=== PATIENT | male | born 1975 | race Caucasian/White ===

== ENCOUNTER 2024-01-15 17:40 | Emergency (ER) | payer SELFPAY ==
[2024-01-15 17:43] VITALS: BP 123/91
--- NOTE | 2024-01-15 18:32 | ED.GENMED ---
History of Present Illness
General
Chief Complaint: Musculo-Skeletal Complaint
Time Seen by Provider: 01/15/24 18:05
Travel History
Have you had any contact with someone who has COVID-19?: No
Do you have any symptoms of coronavirus? Fever > 100 degrees, chills, cough, shortness of breath, sore throat, loss of taste or smell, muscle aches, or headache?: No
History of Present Illness
History of Present Illness:
88-year-old presents to the emergency department for evaluation of left ankle and foot pain after inverting it when stepping in a pothole accidentally. He is able to bear weight on his toes only
Review of Systems
Review of Systems
Allergies reviewed?: Yes
All Other Systems: ROS reviewed and negative except as documented in HPI and ROS
Phy Exam
Physical Exam
Physical Exam:
GEN: Well appearing, NAD, WDWN
HEENT: Oral mucosa moist, no scleral icterus
Cardiac: Regular rate
Lung: No respiratory distress, no tachypnea
MSK: Ecchymosis and swelling to the left lateral foot, left ankle range of motion is normal
Skin: Good color, no pallor or jaundice, no rashes
Neuro: AO x3, moves all extremities freely
Psych: Calm, cooperative
Course
Orders/Labs/Results
Orders:
Orders
01/15/24 17:45
Ankle, left 3 view CR [CR Ankle - Left Min 3 Views ] Urgent
Comment:
Reason For Exam: fell ankle and foot
CR Foot - Left Min 3 Views Urgent
Comment:
Reason For Exam: left foot and ankle pain fell today
01/15/24 18:32
Ortho Boot Left- Treatment ONCE
Short or tall?: Short
Vital Signs
Initial and Last Documented VS:
Initial Vital Signs
Temp Pulse Resp BP Pulse Ox
97.8 F 87 16 123/91 98
01/15/24 17:43 01/15/24 17:43 01/15/24 17:43 01/15/24 17:43 01/15/24 17:43
Last Documented Vital Signs
Temp Pulse Resp BP Pulse Ox
97.8 F 87 16 123/91 98
01/15/24 17:43 01/15/24 17:43 01/15/24 17:43 01/15/24 17:43 01/15/24 17:43
MDM/Problems Addressed
MDM/Problems Addressed:
X-rays of the left foot and ankle are unremarkable. Patient is provided with an orthopedic boot due to the likelihood of significant ankle sprain/tendon rupture, discussed supportive care and return parameters
*Critical Care Note
Total Time (30-74mins, 75-104mins- exclusive of procedures): Not Applicable
ED Attending Note
-
Portions of this chart may have been created with voice recognition software.� Occasional wrong word or��sound alike� substitutions may have occurred due to the inherent limitations of voice recognition software.
Discharge Plan
Departure
Patient Disposition: Home (Routine Discharge)
Date of Disposition: 01/15/24
Time of Disposition: 18:36
Patient with high blood pressure during this ER visit?: No
Discharge Problem:
Left ankle sprain
Instructions: Ankle Sprain ED
Referrals:
Shaheed Cruz MD [Active] -
Interventions
Interventions:
*General Assessment Last Done: 01/15/24 18:45
*Nursing Disposition Last Done: 01/15/24 18:45
ED-Musculoskeletal Assessment Last Done: 01/15/24 18:23
Discharge Date and Time
Discharge Date/Time: 01/15/24 18:51
Print Language: FAROESE
== END 2024-01-15 18:51 | disposition home or self-care (01) ==
LOC: EMR 17:40
PROVIDERS: EMERGENCY PHYSICIAN Student in an Organized Health Care Education/Training Program; FAMILY PHYSICIAN Family Medicine
DX: S93.402A Sprain of unspecified ligament of left ankle, initial encounter (principal); W17.2XXA Fall into hole, initial encounter
CPT/HCPCS: 99283; 29515; 73610; 73630